=== PATIENT | male | born 1960 | race Caucasian/White ===

== ENCOUNTER → 2017-03-07 | Outpatient (CLI) | payer BC ==
[~2017-03-07] MED LIST: AUGMENTIN 875875 MG PO; FLAGYL500 MG PO; HYZAAR 12.5 MG-1 TA1 PO; LISINOPRIL5 MG PO; METFORMIN1000 MG PO; NORVASC5 MG PO; NOVOLOG100 U/ML SC; PERCOCET 325 MG1 TA2 PO; VICODIN 5/500 505 MG PO
[2017-03-07 08:34] LABS: BILIRUBIN NEGATIVE (NEGATIVE); BLOOD NEGATIVE (NEGATIVE); CLARITY CLEAR (CLEAR); COLOR YELLOW (YELLOW); GLUCOSE 2+ (NEGATIVE); KETONE NEGATIVE (NEGATIVE); LEUKO ESTERASE NEGATIVE (NEGATIVE); NITRITE NEGATIVE (NEGATIVE); PROTEIN NEGATIVE (NEGATIVE); SPECIFIC GRAVITY <= 1.005 (1.005-1.030); UROBILINOGEN 0.2 E.U./dl (0.2-1.0)
[2017-03-07 08:51] LABS: ALKALINE PHOSPHATASE 114 U/L (45-117); BILIRUBIN, DIRECT < 0.1 mg/dL (0.0-0.2); BILIRUBIN, TOTAL 0.5 mg/dl (0.2-1.0); BUN 21 mg/dl (7-24); CARBON DIOXIDE 27 mmol/L (21-32); CHLORIDE 103 mmol/L (98-107); CHOLESTEROL 226 mg/dL (<200); EST GLOM FILT AFRICAN AMERICAN > 60 ml/min; GLUCOSE 248 mg/dL (65-99); HDL CHOLESTEROL 43 mg/dl (40-60); LDL CHOLESTEROL 121 mg/dL (9-159); POTASSIUM 4.1 mmol/L (3.5-5.1); SGOT/AST 16 IU/L (3-35); SGPT/ALT 30 U/L (12-78); SODIUM 136 mmol/L (136-145); TOTAL PROTEIN 7.6 gm/dL (6.4-8.2); TRIGLYCERIDES 309 mg/dl (<150); VLDL CHOLESTEROL 62 mg/dL (6-40)
[2017-03-07 09:05] LABS: HEMOGLOBIN A1c 8.4 % (4.8-5.6)
[2017-03-07 09:23] LABS: VITAMIN D, 25-HYDROXY 12.6 ng/mL (30-100)
[2017-03-07 09:58] LABS: EPITHELIAL CELLS 0-2
== END | disposition home or self-care (01) ==
LOC: LAB 07:51
PROVIDERS: Internal Medicine
DX: E04.9 Nontoxic goiter, unspecified (principal); E78.5 Hyperlipidemia, unspecified; E55.9 Vitamin D deficiency, unspecified; E11.65 Type 2 diabetes mellitus with hyperglycemia

== ENCOUNTER 2017-05-30 22:20 | Inpatient (IN) | payer BC ==
[~2017-05-30] VITALS: Ht 177.8 cm; Wt 101.3 kg
--- NOTE | ~2017-05-30 | ST ---
[place], [place] EXERCISE STRESS TEST REPORT NAME: LANG LOW UNIT #: [id number] ROOM: 424 DOCTOR: BEATRICE LLAMAS,LUIS BIRTHDATE: [birth year] DOS: 05/31/2017 EXERCISE NUCLEAR STRESS TEST REFERRING PHYSICIAN: Dr. Luong. REASON FOR TEST: Chest pain and palpitations. PHYSICAL EXAMINATION NECK: Supple. LUNGS: Clear anteriorly. HEART: Regular rhythm. PROTOCOL: Román protocol. Total stress time 6 minutes. Maximum heart rate 140, which is 86% of target heart rate. Peak blood pressure 180/96, adequate response. Total mets 7.1 mets. Symptoms: The patient is chest pain free, developed some shortness of breath. EKG: Resting EKG shows sinus rhythm. Stress EKG showed no ischemia, no arrhythmias. CONCLUSION: Clinically, the patient is chest pain free. EKG nonischemic. POST-STRESS COMPLICATIONS: None. LUIS BARRON MD CM:STRESS:EXERCISE STRESS TEST REPORT [id number] LUIS BARRON MD
--- NOTE | ~2017-05-30 | CON ---
[place], [place] REPORT OF CONSULTATION [id number] UNIT #: [id number] ROOM: 424 DOCTOR: LUIS BARRON MD BIRTHDATE: [birth year] DOS: 05/31/2017 REASON FOR CONSULTATION: Chest pain. CONSULTING PHYSICIAN: Dr. Luong. HISTORY OF PRESENT ILLNESS: The patient is a 57-year-old patient with history of hypertension, diabetes, obesity, came to the Emergency Room with chest pain. He described this pain as a squeezing sensation in the left side of the chest, both at rest, on activity, but mostly at rest, mild, no radiation and sometimes associated with some shortness of breath. He actually described this as "he feels like his heart is skipping a beat and then he feels like squeezing sensation at the left precordial area in the last couple of seconds. This has been going on for years, at least 20-30 years, but recently being more frequently. He had stress test echo about 5-10 years ago. He denies any palpitations, dizziness or syncope. No PND, no orthopnea, no edema of the feet. Does not smoke, but he does smoke marijuana. Again, he had history of hypertension, diabetes, but does not smoke cigarettes. No fever and chills, no cough, no hemoptysis, no genitourinary symptoms. No gastrointestinal symptoms. No neurological symptoms. No blurred vision, no double vision. In the Emergency Room, he was given aspirin and metoprolol and admitted to the hospital and Cardiology was consulted for further recommendations. REVIEW OF SYSTEMS: Review of the 8 systems negative except as mentioned above. PAST MEDICAL HISTORY: 1. Hypertension. 2. Diabetes type 2. 3. Obesity. 4. COPD. PAST SURGICAL HISTORY: History of knee surgery and eye surgery. SOCIAL HISTORY: The patient does not smoke or drink alcohol, but does use marijuana. FAMILY HISTORY: Father from natural causes. Mother from natural causes, details unknown. ALLERGIES: The patient has no known drug allergies. HOME MEDICATIONS: Reviewed. PHYSICAL EXAMINATION: VITAL SIGNS: Blood pressure 126/76, pulse 90, respirations 18. GENERAL: Alert, comfortable, in no acute distress. HEENT: Pupils are round and equal. No jaundice. Tongue was moist and pharynx was clear. NECK: Supple, no distended neck veins, no carotid bruit. CHEST: Chest wall symmetrical, nontender. [place], [place] REPORT OF CONSULTATION NAME: LANG LOW UNIT #: [id number] ROOM: 424 DOCTOR: LUIS BARRON MD BIRTHDATE: [birth year] LUNGS: Clear to auscultation bilaterally except few rhonchi. HEART: Regular rhythm, no S3, grade 1/6 systolic murmur. ABDOMEN: Benign, nontender. Bowel sounds normal. EXTREMITIES: No edema. Distal pulses are palpable. SKIN: Warm and dry. No cyanosis, no clubbing. NEUROLOGIC: The patient is alert, oriented. No focal neurologic deficit. RECTAL: Deferred. GENITOURINARY: Deferred. REVIEW OF THE DIAGNOSTIC TESTS: EKG, labs, and imaging studies reviewed. EKG showed normal sinus rhythm with inferior nonspecific ST-T changes. Cardiac enzymes are unremarkable. IMPRESSION: 1. Chest pain, atypical, myocardial infarction ruled out. 2. Possible intermittent palpitations. 3. Chronic exertional dyspnea. 4. Hypertension. 5. Diabetes type 2. 6. Morbid obesity. 7. Chronic obstructive pulmonary disease. 8. Marijuana use. RECOMMENDATIONS: His EKG, cardiac enzymes unremarkable. Scheduled for exercise nuclear stress test due to his symptoms and coronary disease risk factors. Risk factor modification to quit using drugs. Diet, exercise and weight loss as discussed. If his stress test is unremarkable, he can be discharged home today and we will follow him as an outpatient and consider outpatient Holter monitor and also 2D echo. Thank you, Dr. Luong, for asking us to evaluate this patient. LUIS BARRON MD CM:CONSTR:REPORT OF CONSULTATION 1421 06/01/17 0542 interface
[2017-05-30 22:31] VITALS: BP 194/108
[2017-05-30 22:40] LABS: BASO # 0.1 10*3/uL (0.0-0.1); BASO % 0.5 % (0.0-1.0); EOS # 0.3 10*3/uL (0.0-0.4); EOS % 2.4 % (1.0-4.0); HEMATOCRIT 50.1 % (42.0-52.0); HEMOGLOBIN 17.4 g/dl (14.0-18.0); LYMPH # 2.9 10*3/uL (1.3-4.4); LYMPH % 22.6 % (27.0-41.0); MEAN CELL VOLUME 82.7 fl (80.0-94.0); MEAN CORPUSCULAR HGB 28.7 pg (27.0-31.0); MEAN CORPUSCULAR HGB CONC 34.7 g/dl (33.0-37.0); MEAN PLATELET VOLUME 11.6 fl (9.6-12.3); MONO # 1.1 10*3/uL (0.1-1.0); MONO % 8.6 % (3.0-9.0); NEUT # 8.4 10*3/uL (2.3-7.9); NEUT % 65.6 % (47.0-73.0); PLATELET COUNT AUTOMATED 172 10*3/uL (130-400); RED BLOOD COUNT 6.06 10*6/uL (4.50-5.90); RED CELL DISTRI WIDTH 12.4 % (0-14.5); WHITE BLOOD COUNT 12.8 10*3/uL (4.8-10.8)
[2017-05-30 22:50] LABS: INTERNATIONAL NORM RATIO 0.9 (2.0-3.5)
[2017-05-30 23:00] LABS: ALBUMIN 4.2 gm/dl (3.1-4.5); ALKALINE PHOSPHATASE 125 U/L (45-117); BILIRUBIN, TOTAL 0.4 mg/dl (0.2-1.0); BUN 33 mg/dl (7-24); CARBON DIOXIDE 23 mmol/L (21-32); CHLORIDE 101 mmol/L (98-107); EST GLOM FILT AFRICAN AMERICAN > 60 ml/min; GLUCOSE 151 mg/dL (65-99); MAGNESIUM 2.3 mg/dL (1.5-2.1); POTASSIUM 3.8 mmol/L (3.5-5.1); SGOT/AST 23 IU/L (3-35); SODIUM 136 mmol/L (136-145)
[2017-05-30 23:05] LABS: TROPONIN I < 0.015 ng/ml (<0.045)
[2017-05-30 23:21] VITALS: BP 104/75
[2017-05-30 23:52] VITALS: BP 108/81
[2017-05-31 00:25] LABS: SGPT/ALT 29 U/L (12-78)
[2017-05-31 01:02] VITALS: BP 102/72
[2017-05-31 01:36] VITALS: BP 103/67
[2017-05-31 03:30] VITALS: BP 145/88
[2017-05-31 04:00] VITALS: BP 103/67
[2017-05-31 05:19] LABS: BUN 30 mg/dl (7-24); CARBON DIOXIDE 27 mmol/L (21-32); CHLORIDE 103 mmol/L (98-107); CHOLESTEROL 244 mg/dL (<200); EST GLOM FILT AFRICAN AMERICAN > 60 ml/min; FREE T4 1.21 ng/dl (0.76-1.46); GLUCOSE 79 mg/dL (65-99); HDL CHOLESTEROL 34 mg/dl (40-60); LDL CHOLESTEROL 143 mg/dL (9-159); POTASSIUM 3.1 mmol/L (3.5-5.1); SODIUM 137 mmol/L (136-145); TRIGLYCERIDES 336 mg/dl (<150); VLDL CHOLESTEROL 67 mg/dL (6-40)
[2017-05-31 06:06] LABS: BASO % 0.4 % (0.0-1.0); EOS # 0.3 10*3/uL (0.0-0.4); EOS % 2.9 % (1.0-4.0); HEMATOCRIT 47.5 % (42.0-52.0); HEMOGLOBIN 16.5 g/dl (14.0-18.0); IG # 0.1 10*3/uL (0.0-0.1); LYMPH % 20.9 % (27.0-41.0); MEAN CELL VOLUME 84.4 fl (80.0-94.0); MEAN CORPUSCULAR HGB 29.3 pg (27.0-31.0); MEAN CORPUSCULAR HGB CONC 34.7 g/dl (33.0-37.0); MEAN PLATELET VOLUME 11.8 fl (9.6-12.3); MONO # 0.7 10*3/uL (0.1-1.0); MONO % 7.6 % (3.0-9.0); NEUT # 6.5 10*3/uL (2.3-7.9); NEUT % 67.7 % (47.0-73.0); PLATELET COUNT AUTOMATED 146 10*3/uL (130-400); RED BLOOD COUNT 5.63 10*6/uL (4.50-5.90); RED CELL DISTRI WIDTH 12.4 % (0-14.5); WHITE BLOOD COUNT 9.6 10*3/uL (4.8-10.8)
[2017-05-31 06:23] LABS: PROTHROMBIN TIME 10.3 SECONDS (9.0-12.4)
[2017-05-31 06:36] LABS: HEMOGLOBIN A1c 9.3 % (4.8-5.6)
[2017-05-31 07:28] LABS: VITAMIN D, 25-HYDROXY 19.6 ng/mL (30-100)
[2017-05-31 07:31] LABS: FOLIC ACID > 24.00 ng/mL (>5.38)
[2017-05-31 08:00] VITALS: BP 134/69
[2017-05-31 12:00] VITALS: BP 140/69
[2017-05-31] MEDS ORDERED: VITAMIN D31000 UNIT PO (14:49)
[2017-05-31] MEDS ORDERED: PANTOPRAZOLE SO40 MG PO (14:49)
== END 2017-05-31 16:48 | disposition home or self-care (01) | DRG 313 ==
LOC: ED 22:20 → EDHOLD 05-31 02:01 → 4E 05-31 02:01
PROVIDERS: Emergency Medicine Emergency Medical Services; Family Medicine
PROC: 4A02XM4 Measurement of Cardiac Total Activity, External Approach (ICD-10-PCS; principal; 2017-05-31)
DX: R07.89 Other chest pain (principal); N17.0 Acute kidney failure with tubular necrosis; E11.65 Type 2 diabetes mellitus with hyperglycemia; E83.41 Hypermagnesemia; R65.10 Systemic inflammatory response syndrome (SIRS) of non-infectious origin without acute organ dysfunction; E66.01 Morbid (severe) obesity due to excess calories; I10 Essential (primary) hypertension; D72.829 Elevated white blood cell count, unspecified; E87.6 Hypokalemia; E78.5 Hyperlipidemia, unspecified; D72.810 Lymphocytopenia; J44.9 Chronic obstructive pulmonary disease, unspecified; F12.90 Cannabis use, unspecified, uncomplicated; Z79.4 Long term (current) use of insulin; Z79.899 Other long term (current) drug therapy; Z68.32 Body mass index [BMI] 32.0-32.9, adult; Z87.891 Personal history of nicotine dependence

== ENCOUNTER 2018-10-18 | Emergency (ER) | payer OTHER ==
[~2018-10-18] MED LIST changes: +PANTOPRAZOLE SO40 MG PO; +VITAMIN D31000 UNIT PO
--- NOTE | ~2018-10-18 | EKG ---
[place], [place] ELECTROCARDIOGRAM REPORT NAME: LANG LOW UNIT #: [id number] ROOM: DOCTOR: EPIPHANY DRAFT REPORT BIRTHDATE: [birth year] [facility] Test Date: 2018-10-18 Test Time: 16:51:45 Pat Name: LANG LOW Department: Room: Gender: Letter Of Credit Clerk: : 1960 Requested By: CUONG MIKE Order Number: [id number] Reading MD: Angel Manning MD Measurements Intervals [place] Rate: 134 P: -14 PA: 153 QRS: 34 QRSD: 92 T: 136 QT: 321 QTc: 480 Interpretive Statements Multifocal atrial tachycardia Borderline repolarization abnormality Baseline wander in lead(s) V4 No previous ECG available for comparison Electronically Signed On 10-18-2018 18:41:05 PST by Angel Manning MD CM:EKGRPT:ELECTROCARDIOGRAM REPORT [id number] CUONG SANTAMARIA DRAFT REPORT CUONG MIKE M.D.
[2018-10-18 16:59] LABS: BASO # 0.1 10*3/uL (0.0-0.1); BASO % 0.7 % (0.0-1.0); EOS # 0.2 10*3/uL (0.0-0.4); EOS % 1.5 % (1.0-4.0); HEMATOCRIT 50.2 % (42.0-52.0); LYMPH # 2.5 10*3/uL (1.3-4.4); LYMPH % 23.2 % (27.0-41.0); MEAN CELL VOLUME 83.9 fl (80.0-94.0); MEAN CORPUSCULAR HGB 28.4 pg (27.0-31.0); MEAN CORPUSCULAR HGB CONC 33.9 g/dl (33.0-37.0); MEAN PLATELET VOLUME 12.2 fl (9.6-12.3); MONO # 0.8 10*3/uL (0.1-1.0); MONO % 7.1 % (3.0-9.0); NEUT # 7.3 10*3/uL (2.3-7.9); NEUT % 67.1 % (47.0-73.0); PLATELET COUNT AUTOMATED 170 10*3/uL (130-400); RED BLOOD COUNT 5.98 10*6/uL (4.50-5.90); RED CELL DISTRI WIDTH 12.3 % (0-14.5); WHITE BLOOD COUNT 10.9 10*3/uL (4.8-10.8)
[2018-10-18 17:06] LABS: ACT PARTIAL THROMBO TIME 22.8 SECONDS (20.8-31.5); INTERNATIONAL NORM RATIO 0.9 (2.0-3.5)
[2018-10-18 17:14] LABS: ALBUMIN 4.2 gm/dl (3.1-4.5); ALKALINE PHOSPHATASE 115 U/L (45-117); BUN 19 mg/dl (7-24); CHLORIDE 105 mmol/L (98-107); CREATININE 1.07 mg/dL (0.70-1.30); POTASSIUM 3.8 mmol/L (3.5-5.1); SGOT/AST 17 IU/L (3-35); SGPT/ALT 33 U/L (12-78); SODIUM 138 mmol/L (136-145)
[2018-10-18 17:17] LABS: TROPONIN I < 0.015 ng/ml (<0.045)
[2018-10-18] MEDS ORDERED: ZOFRAN4 MG PO (17:25)
[2018-10-18] MEDS ORDERED: METOPROLOL SUCC25 M2 PO (19:01)
== END 2018-10-18 19:31 | disposition home or self-care (01) ==
PROVIDERS: Emergency Medicine
DX: I49.8 Other specified cardiac arrhythmias (principal); F12.10 Cannabis abuse, uncomplicated; E66.9 Obesity, unspecified; I10 Essential (primary) hypertension; E11.649 Type 2 diabetes mellitus with hypoglycemia without coma; Z68.39 Body mass index [BMI] 39.0-39.9, adult; Z98.890 Other specified postprocedural states; Z79.4 Long term (current) use of insulin; Z79.82 Long term (current) use of aspirin

== ENCOUNTER 2018-11-30 03:25 | Emergency (ER) | payer OTHER ==
--- NOTE | ~2018-11-30 | EKG ---
[place], [place] ELECTROCARDIOGRAM REPORT NAME: LANG LOW UNIT #: [id number] ROOM: DOCTOR: EPIPHANY DRAFT REPORT BIRTHDATE: [birth year] [facility] Test Date: 2018-11-30 Test Time: 03:40:27 Pat Name: LANG LOW Department: ER Room: 9 Gender: M Geriatric Nurse: Carmen Doherty : 1960 Requested By: STEVE CALLEJAS Order Number: [id number] Reading MD: Juan To MD Measurements Intervals [place] Rate: 93 P: 55 [place]: 164 QRS: 21 QRSD: 111 T: 3 QT: 379 QTc: 472 Interpretive Statements Sinus rhythm Probable left atrial enlargement Baseline wander in lead(s) V2,V3 Compared to ECG 10/18/2018 16:51:45 Ectopic atrial tachycardia, multifocal no longer present Electronically Signed On 12-02-2018 4:34:52 PST by Juan To MD CM:EKGRPT:ELECTROCARDIOGRAM REPORT [id number] STEVE CHAO DRAFT REPORT STEVE CALLEJAS DO
[~2018-11-30 03:25] MED LIST changes: +METOPROLOL SUCC25 M2 PO; +ZOFRAN4 MG PO
[2018-11-30 03:26] VITALS: BP 152/87
[2018-11-30 03:57] LABS: BASO % 0.4 % (0.0-1.0); EOS # 0.2 10*3/uL (0.0-0.4); HEMATOCRIT 45.1 % (42.0-52.0); HEMOGLOBIN 15.5 g/dl (14.0-18.0); LYMPH # 1.5 10*3/uL (1.3-4.4); LYMPH % 18.5 % (27.0-41.0); MEAN CELL VOLUME 82.9 fl (80.0-94.0); MEAN CORPUSCULAR HGB 28.5 pg (27.0-31.0); MEAN CORPUSCULAR HGB CONC 34.4 g/dl (33.0-37.0); MEAN PLATELET VOLUME 11.7 fl (9.6-12.3); MONO # 0.5 10*3/uL (0.1-1.0); MONO % 6.5 % (3.0-9.0); NEUT # 5.9 10*3/uL (2.3-7.9); NEUT % 72.4 % (47.0-73.0); PLATELET COUNT AUTOMATED 126 10*3/uL (130-400); RED BLOOD COUNT 5.44 10*6/uL (4.50-5.90); RED CELL DISTRI WIDTH 12.2 % (0-14.5); WHITE BLOOD COUNT 8.1 10*3/uL (4.8-10.8)
[2018-11-30] MEDS ORDERED: AVPAK AZITHROM250 M1 PO (04:03)
[2018-11-30] MEDS ORDERED: TESSALON PERLE100 MG PO (04:03)
[2018-11-30] MEDS ORDERED: PREDNISONE50 MG PO (04:03)
[2018-11-30 04:17] LABS: ALBUMIN 3.6 gm/dl (3.1-4.5); ALKALINE PHOSPHATASE 134 U/L (45-117); BUN 15 mg/dl (7-24); CHLORIDE 101 mmol/L (98-107); CREATININE 0.94 mg/dL (0.70-1.30); SGOT/AST 23 IU/L (3-35); SGPT/ALT 25 U/L (12-78); SODIUM 136 mmol/L (136-145); TOTAL PROTEIN 7.4 gm/dL (6.4-8.2)
[2018-11-30 04:23] LABS: TROPONIN I < 0.015 ng/ml (<0.045)
== END 2018-11-30 05:22 | disposition home or self-care (01) ==
LOC: ED 03:25
PROVIDERS: Student in an Organized Health Care Education/Training Program
DX: R05 Cough (principal); R06.02 Shortness of breath; I10 Essential (primary) hypertension; E11.9 Type 2 diabetes mellitus without complications; E66.9 Obesity, unspecified; F12.10 Cannabis abuse, uncomplicated; Z68.30 Body mass index [BMI] 30.0-30.9, adult; Z79.4 Long term (current) use of insulin; Z79.899 Other long term (current) drug therapy

== ENCOUNTER 2025-02-06 13:01 | Emergency (ER) | payer MEDICARE ==
[~2025-02-06] VITALS: Ht 177.8 cm; Wt 102.1 kg
[~2025-02-06 13:01] MED LIST changes: +AVPAK AZITHROM250 M1 PO; +PREDNISONE50 MG PO; +TESSALON PERLE100 MG PO
[2025-02-06 13:06] VITALS: BP 103/88
[2025-02-06] MEDS ORDERED: SODIUM CHLORIDE 0.9% 1,000 ML IV ONE (13:25)
[2025-02-06] MEDS ORDERED: methylPREDNISolone sod succ 125 MG VIAL IV ONE (13:25)
[2025-02-06] MEDS ORDERED: FAMOTIDINE 50 ML IV ONE (13:25)
== END 2025-02-06 15:03 | disposition home or self-care (01) ==
LOC: ED 13:01
DX: T63.441A Toxic effect of venom of bees, accidental (unintentional), initial encounter (principal); I10 Essential (primary) hypertension; E11.9 Type 2 diabetes mellitus without complications; E78.00 Pure hypercholesterolemia, unspecified; Z79.899 Other long term (current) drug therapy; Z98.890 Other specified postprocedural states; Y92.89 Other specified places as the place of occurrence of the external cause